=== PATIENT | female | born 1965 | race Caucasian/White ===

== ENCOUNTER 2020-04-02 20:41 | Emergency (ER) | payer OTHER ==
[2020-04-02 20:54] VITALS: TEMP 98.2; BMI 26.4
--- NOTE | 2020-04-02 20:57 | PDOC ---
Rapid Medical Evaluation Chief Complaint: Lightheaded Time Seen by Provider: 04/02/20 20:49 Medical Evaluation: 04/02/20 20:49 CC: sent here for evaluation for a letter she endorsed last night about she was tired and wanted everything to end. Pt states was drinking alcohol but not more than the norm and states did not feel like hurting herself or others at that time but felt a little depressed. pt states normally journals but could not find it so wrote her feeling on a paper found by her daughter. pt denies si/hi, hallucinations, delusions. Exam: appears on a substance (although she denies) Plan: cbc, comp, utox, alcohol level Discharge Disposition - Diagnosis Encounter for psychological evaluation - Referrals - Patient Instructions - Post Discharge Activity
--- NOTE | 2020-04-02 21:37 | PDOC ---
History of Present Illness - General Chief Complaint: Suicidal Stated Complaint: SUICIDAL IDEATION Time Seen by Provider: 04/02/20 20:49 - History of Present Illness Initial Comments: 04/02/20 21:28 55 year old woman with a history of HTN and hypothyroidism who presents with possible suicidal ideation as reported by daughter. The patient reports that she was feeling depressed yesterday and this AM and she could not find her jounral and wrote on a paper kane beck was "fed up with everything". She denies any concrete plan to end her life, denies SI/HI, AH/VH. She reports that she drinks alcohol socially, occasionally snorts cocaine but did not do use any drugs today. Daughter [phone] Daughter brings in notes that patient wrote: " [Life Insurance policy provided] / Rachna always remember, I love you and will always be in your heart To Rachna, you are the best gift I have ever gotten in this world. I love you so much but life has gotten the best of me. Please don't be mad at me. I'm with Poppy and at peace. Please put me with carole ruiz. The deed is in the closet in the back. Keep plot for you and Justin I'm so sorry, but life is so hard. Please remember I'll always love youand keep me in your heart. Maybe name your first daughter after me. I love you always. Just too much heartbreak." Daughter reports she received several texts last night that stated that the patient loved her daughter. ROS GENERAL/CONSTITUTIONAL: No fever or chills. No weakness. HEAD, EYES, EARS, NOSE AND THROAT: No change in vision. No ear pain or discharge. No sore throat. CARDIOVASCULAR: No chest pain or shortness of breath RESPIRATORY: No cough, wheezing, or hemoptysis. GASTROINTESTINAL: No nausea, vomiting, diarrhea or constipation. GENITOURINARY: No dysuria, frequency, or change in urination. MUSCULOSKELETAL: No joint or muscle swelling or pain. No neck or back pain. SKIN: No rash NEUROLOGIC: No headache, vertigo, loss of consciousness, or change in strength/sensation. ENDOCRINE: No increased thirst. No abnormal weight change HEMATOLOGIC/LYMPHATIC: No anemia, easy bleeding, or history of blood clots. ALLERGIC/IMMUNOLOGIC: No hives or skin allergy. PE GENERAL: Awake, alert, and fully oriented, in no acute distress HEAD: No signs of trauma, normocephalic, atraumatic EYES: EOMI, sclera anicteric, conjunctiva clear ENT: oropharynx clear without exudates. Moist mucosa NECK: Normal ROM, supple LUNGS: No distress, speaks full sentences, clear to auscultation bilaterally HEART: Regular rate and rhythm, normal S1 and S2, no murmurs, rubs or gallops, peripheral pulses normal and equal bilaterally. ABDOMEN: Soft, nontender. No guarding, no rebound. No masses EXTREMITIES : Normal inspection, Normal range of motion, no edema. No clubbing or cyanosis. NEUROLOGICAL: Cranial nerves II through XII grossly intact. Normal speech, no focal sensorimotor deficits SKIN: Warm, Dry, normal turgor, no rashes or lesions noted Assessment and Plan 55 year old woman with a history of HTN and hypothyroidism who presents with possible suicidal ideation as reported by daughter. Patient to be kept on involuntary hold until psych evaluation Oralia Vega, PGY2 Emergency Medicine Past History - Medical History Allergies/Adverse Reactions: Allergies Allergy/AdvReac Type Severity Reaction Status Date / Time No Known Allergies Allergy Verified 04/02/20 20:53 Home Medications: Ambulatory Orders Levothyroxine [Synthroid -] 25 mcg PO DAILY 04/03/20 Losartan/Hydrochlorothiazide [Losartan-Hctz 100-25 mg Tab] 1 tab PO DAILY 04/03/20 Meclizine HCl [Antivert -] 12.5 mg PO QID #10 tablet 04/03/20 Asthma: Yes COPD: No Psychiatric Problems: Yes (anxiety) - Psycho-Social/Smoking History Smoking History: Current some day smoker Information on smoking cessation initiated: No - Substance Abuse Hx (Audit-C & DAST Scrn) How often the patient has a drink containing alcohol: Monthly or less Score: In Men: 4 or > Positive; In Women: 3 or > Positive: 1 Screen Result (Pos requires Nsg. Audit-10AR): Negative *Physical Exam - Vital Signs Last Vital Signs Temp Pulse Resp BP Pulse Ox 98.2 F 75 18 162/75 98 04/02/20 20:45 04/02/20 20:45 04/02/20 20:45 04/02/20 20:45 04/02/20 20:45 ED Treatment Course - LABORATORY CBC & Chemistry Diagram: 04/02/20 21:53 04/02/20 21:53 Discharge - Discharge Information Problems reviewed: Yes Clinical Impression/Diagnosis: Encounter for psychological evaluation, Suicidal thoughts Condition: Fair Disposition: HOME - Additional Discharge Information Prescriptions: Meclizine HCl [Antivert -] 12.5 mg PO QID #10 tablet - Follow up/Referral Referrals: Leydi Lazo MD [Staff Physician] - - Patient Discharge Instructions Patient Printed Discharge Instructions: DI for Suicidal Ideation-Adult, Suicidal Ideation-Adult Additional Instructions: You were seen in the emergency department for your suicidal ideation that was reported on intake. Please take care of yourself and refer to the materials in the discharge packet. Please return to the emergency department immediately if you have suicidal ideation. Please follow up with Dr. Lazo within 72 hours after discharge for follow up care and management. - Post Discharge Activity Work/Back to School Note: Back to Work, My Personal Safety Plan
[2020-04-02 22:03] LABS: BASO % 0.3 % (0-2.0); EOS % 0.6 % (0-4.5); HEMATOCRIT 39.6 % (32.4-45.2); HEMOGLOBIN 13.2 GM/dL (10.7-15.3); MCH 30.9 pg (25.7-33.7); MCHC 33.3 g/dl (32.0-36.0); MEAN CELL VOLUME 92.8 fl (80-96); MEAN PLT VOLUME 7.7 fl (7.5-11.1); MONO % 6.2 % (3.8-10.2); NEUT % 34.9 % (42.8-82.8); PLATELET COUNT 297 K/MM3 (134-434); RBC 4.26 M/mm3 (3.60-5.2); RDW 14.7 % (11.6-15.6)
[2020-04-02 22:31] LABS: ALK PHOS 60 U/L (45-117); ANION GAP 6 MMOL/L (8-16); BILIRUBIN,TOTAL 0.7 mg/dL (0.2-1); BLOOD UREA NITROGEN 22.1 mg/dL (7-18); CALCIUM 9.2 mg/dL (8.5-10.1); CHLORIDE 101 mmol/L (98-107); CO2 29 mmol/L (21-32); GLUCOSE,RANDOM 89 mg/dL (74-106); POTASSIUM 3.4 mmol/L (3.5-5.1); SGOT/AST 21 U/L (15-37); SGPT/ALT 31 U/L (13-61); SODIUM 136 mmol/L (136-145); TOT PROT 6.9 g/dl (6.4-8.2)
[2020-04-03] MEDS ORDERED: POTASSIUM CHLORIDE TABS 20 MEQ TABLET.ER (FP) PO ONE ×2 (00:21→00:39)
--- NOTE | 2020-04-03 00:25 | PDOC ---
Documentation entered by Adrienne Hylton SCRIBE, acting as scribe for Nasreen Vigil MD. Nasreen Vigil MD: This documentation has been prepared by the Concetta heard Nirvannie, SCRIBE, under my direction and personally reviewed by me in its entirety. I confirm that the documentation accurately reflects all work, treatment, procedures, and medical decision making performed by me. Attending Attestation - Resident Resident Name: Oralia Vega - ED Attending Attestation I have performed the following: I have examined & evaluated the patient, The case was reviewed & discussed with the resident, I agree w/resident's findings & plan, Exceptions are as noted - HPI HPI: 04/02/20 22:20 The patient is a 55 year old female with a significant past medical history of HTN and hypothyroidism who presents to the ED with possible SI. Patient was brought to the ED by daughter after she arrived and saw her mother slurring her speech, was uncoordinated, unable to sit up, or put on her glasses thus she laid her down until EMS could arrive. Patient usually wakes up at 4am happy and cleaning but, today did not wake until approximately 2pm. The daughter found a paper which she describes as a suicide note (refer to resident note). Daughter notes yesterday the patient texted her she loves her and where to find the life insurance paperwork at 8:30pm then again at 10:30pm she said I love you and did not respond to daughter's texts back. Patient notes some time between last night and today she took 5+ sleeping pills and Xanax (not her prescription). She recently returned home a week ago from a vacation with her boyfriend who the daughter notes is toxic (he has a substance abuse problem). 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 The patient's mother has a PSYCH NURSE for a few hours a day, her sister lives in [facility] and helps out 2x/week and her daughter helps out occasionally (does not live with her); thus she takes the primary role of care taking. Patient admits to occasional cocaine usage (snort), but denies any usage today. Patient denies any concrete suicide plan. She denies any HI, auditory/visual hallucinations. - Physicial Exam PE: 04/02/20 22:36 GENERAL: Clean. Well-kempt. Awake, alert, and fully oriented, in no acute distress HEAD: No signs of trauma EYES: PERRLA, EOMI, sclera anicteric, conjunctiva clear ENT: Auricles normal inspection, hearing grossly normal, nares patent, oropharynx clear without exudates. Moist mucosa NECK: Normal ROM, supple, no lymphadenopathy, JVD, or masses LUNGS: Breath sounds equal, clear to auscultation bilaterally. No wheezes, and no crackles HEART: Regular rate and rhythm, normal S1 and S2, no murmurs, rubs or gallops ABDOMEN: +Protuberant. Soft, nontender, normoactive bowel sounds. No guarding, no rebound. No masses EXTREMITIES: Normal range of motion, no edema. No clubbing or cyanosis. No cords, erythema, or tenderness NEUROLOGICAL: Cranial nerves II through XII grossly intact. Normal speech SKIN: +Multiple tattoos. Warm, Dry, normal turgor, no rashes or lesions noted. - Medical Decision Making 04/03/20 00:24 Pt has a normal asa, apap, alcohol screen. Labs normal K+ slightly low Pt will be given oral K+ 04/03/20 05:26 Pt is awaiting psych eval this AM Discharge - Discharge Information Problems reviewed: Yes Clinical Impression/Diagnosis: Encounter for psychological evaluation, Suicidal thoughts - Follow up/Referral - Patient Discharge Instructions - Post Discharge Activity Work/Back to School Note: My Personal Safety Plan
[2020-04-03] MEDS ORDERED: LOSARTAN 50MG/HCTZ 12.5MG 1 TAB (FP) PO ONE (08:06)
[2020-04-03] MEDS ORDERED: MECLIZINE HCL 12.5 MG TABLET PO ONE (08:06)
[2020-04-03] MEDS ORDERED: LEVOTHYROXINE NA 25 MCG TABLET (FP) PO ONE (08:06)
[2020-04-03] MEDS ORDERED: LEVOTHYROXINE NA 25 MCG TABLET (FP) ONE (08:14)
[2020-04-03] MEDS ORDERED: MECLIZINE HCL 12.5 MG TABLET ONE (08:14)
--- NOTE | 2020-04-03 08:53 | PDOC ---
*Physical Exam - Vital Signs Last Vital Signs Temp Pulse Resp BP Pulse Ox 98.2 F 64 18 146/78 98 04/02/20 20:45 04/03/20 08:00 04/03/20 08:00 04/03/20 08:00 04/03/20 08:00 - Physical Exam Received patient at sign out from morning team Patient was re-assessed. Denies current pain and denies current suicidal ideation. A call was placed at [address] Lazo for psychiatric evaluation of the patient. Patient was evaluated by Dr. Laoz who has cleared the patient psychiatrically. The patient is medically clear for discharge. Patient to be discharged with follow up with Dr. Lazo. Currently deny active suicidal ideation. ED Treatment Course - LABORATORY CBC & Chemistry Diagram: 04/02/20 21:53 04/02/20 21:53 - ADDITIONAL ORDERS Additional order review: Laboratory Results 04/02/20 04/02/20 04/02/20 21:53 21:53 21:53 Sodium 136 Potassium 3.4 L Chloride 101 Carbon Dioxide 29 Anion Gap 6 L BUN 22.1 H Creatinine 1.0 Est GFR (CKD-EPI)AfAm 73.97 Est GFR (CKD-EPI)NonAf 63.82 Random Glucose 89 Calcium 9.2 Total Bilirubin 0.7 AST 21 ALT 31 Alkaline Phosphatase 60 Total Protein 6.9 Albumin 4.0 TSH 1.68 Salicylates 3.0 Acetaminophen 5.5 Alcohol, Quantitative < 3 04/02/20 21:53 RBC 4.26 MCV 92.8 MCHC 33.3 RDW 14.7 MPV 7.7 Neutrophils % 34.9 L Lymphocytes % 58.0 H Monocytes % 6.2 Eosinophils % 0.6 Basophils % 0.3 - Medications Given in the ED: ED Medications Discontinued Medications Generic Name Dose Route Start Last Admin Trade Name Freq PRN Reason Stop Dose Admin HCTZ/Losartan Potassium 2 tab 04/03/20 08:06 04/03/20 08:33 Hyzaar - PO 04/03/20 08:07 2 tab ONCE ONE Administration Levothyroxine Sodium 25 mcg 04/03/20 08:06 04/03/20 08:16 Synthroid - PO 04/03/20 08:07 25 mcg ONCE ONE Administration Meclizine HCl 12.5 mg 04/03/20 08:06 04/03/20 08:16 Antivert - PO 04/03/20 08:07 12.5 mg ONCE ONE Administration Potassium Chloride 40 meq 04/03/20 00:21 04/03/20 00:43 K-Dur - PO 04/03/20 00:22 40 meq ONCE ONE Administration Medical Decision Making - Medical Decision Making 04/03/20 13:20 called at 8 am to yordy who stated he would see the patient Discharge - Discharge Information Problems reviewed: Yes Clinical Impression/Diagnosis: Encounter for psychological evaluation, Suicidal thoughts Condition: Fair Disposition: HOME - Admission No - Additional Discharge Information Prescriptions: Meclizine HCl [Antivert -] 12.5 mg PO QID #10 tablet - Follow up/Referral Referrals: Leydi Lazo MD [Staff Physician] - - Patient Discharge Instructions Patient Printed Discharge Instructions: DI for Suicidal Ideation-Adult, Suicidal Ideation-Adult Additional Instructions: You were seen in the emergency department for your suicidal ideation that was reported on intake. Please take care of yourself and refer to the materials in the discharge packet. Please return to the emergency department immediately if you have suicidal ideation. Please follow up with Dr. Lazo within 72 hours after discharge for follow up care and management. - Post Discharge Activity Work/Back to School Note: Back to Work, My Personal Safety Plan
--- NOTE | 2020-04-03 14:16 | CON.PSY ---
Psychiatry Consult Chief Complaint: i i wrote that note more t negron a month ago, i have no intention of KiLLING MYSELF... I saw fpr anxiety, he gave me Zanax for anxirty.. I had 4 drinks yesterday.. 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 I never [id number] to kill myself..No Psych Hospita;lizations in the past. Symptoms: reports: Irritability - Previous Psychiatric Treatment Outpatient: None, Less than 6 mos ago Inpatient: None - Previous Substance Abuse Treatment Outpatient: None - Reason for Previous Treatment Reason for Previous Treatment: Anxiety or Panic Disorder - Allergies Allergies: Allergies Allergy/AdvReac Type Severity Reaction Status Date / Time No Known Allergies Allergy Verified 04/02/20 20:53 - Current Living Status Usual Living Arrangement: With Parent - Current Mental Status Evaluation Appearance: Well Groomed Attitude: Cooperative - Affect Affect: Full Range Appropriateness: Appropriate to Content - Mood Mood: Euthymic - Speech/Language Expressive: Coherent - Psychomotor Activity Psychomotor Activity: Normal - Thought Process Thought Process: Intact - Thought Content Hallucinations: Absent Delusions: Absent - Self Perception Self Perception: No Impairment - Cognition Attention: Alert Orientation: Time Memory, Immediate Recall: Intact Memory, Short Term: 3/3 Memory, Remote with Promptin/3 - Abstraction Proverb Interpretation: Intact Judgement: Intact - Insight Insight: Intact - Impulse Control Impulse Control: Good Control - Suicidal Ideation Suicidal Ideation: No - Homicidal Ideation Homicidal Ideation: No Assessment/Plan 1) Patient is not actively suicidal at this time... 2) Suicide not was written about a MOnth ago.. 3) will see dr. Reid next week and will get a therapist. 4) Discharge when medically stable..
[2020-04-03 14:34] VITALS: BP 106/62; PULSE 69
== END 2020-04-03 14:41 | disposition home or self-care (01) ==
LOC: JER 20:41
DX: R45.851 Suicidal ideations (principal)
CPT/HCPCS: 36415; 80053; 80307; 84443; 85025; 99284-25; U0003